=== PATIENT | male | born 1965 | race American Indian/Alaskan Native ===

== ENCOUNTER 2020-10-06 11:55 | Emergency (ER) | payer SELFPAY ==
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
[2020-10-06] MEDS ORDERED: hydrALAZINE 20 MG/1 ML INJ IV ONE (12:50)
[2020-10-06] MEDS ORDERED: ACETAMINOPHEN 500 MG TAB PO ONE (13:30)
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
--- NOTE | 2020-10-06 13:34 | XRay Report ---
CHEST 2 VIEWS INDICATION: ELEVATED BP. COMPARISON: None FINDINGS: Support devices: None. Heart: Within normal limits. Lungs/pleura: No acute air space or interstitial disease. No pneumothorax. Additional findings: None. IMPRESSION: No acute findings. Signer Name: Micah Watson Jr, MD Signed: 10/06/2020 1:29 PM Workstation Name: [id number]
[2020-10-06 14:00] LABS: Basophils % (Auto) 0.4 % (0.0-1.8); Eosinophils # (Auto) 0.1 K/mm3 (0.0-0.4); Eosinophils % (Auto) 1.2 % (0.0-4.3); Hemoglobin 14.3 gm/dl (11.8-15.2); Lymphocytes # (Auto) 2.6 K/mm3 (1.2-5.4); Lymphocytes % (Auto) 23.9 % (13.4-35.0); Mean Corpuscular HGB Conc 33 % (32-34); Mean Corpuscular Volume 85 fl (84-94); Monocytes # (Auto) 0.8 K/mm3 (0.0-0.8); Monocytes % (Auto) 7.2 % (0.0-7.3); Platelet Count 208 K/mm3 (140-440); Red Blood Count 5.05 M/mm3 (3.65-5.03); Red Cell Distribution Width 15.1 % (13.2-15.2)
[2020-10-06 14:24] LABS: Alanine Aminotransferase 32 units/L (7-56); Albumin 4.1 g/dL (3.9-5); BUN/Creatinine Ratio 13; Blood Urea Nitrogen 10 mg/dL (9-20); Calcium 8.8 mg/dL (8.4-10.2); Hemolysis Index 3
--- NOTE | 2020-10-06 14:28 | Cat Scan Report ---
CT BRAIN: 10/06/2020 INDICATION / CLINICAL INFORMATION: HEADACHE. COMPARISON: None available. FINDINGS: BRAIN/INTRACRANIAL STRUCTURES: Unenhanced CT images of the brain demonstrate no evidence of acute int racranial abnormality. Ventricles and sulci are normal in size and shape. There is no evidence of ischemic injury, hemorrhage, or mass. There are no abnormal extra-axial fluid collections. Atherosclerotic vascular calcifications are present in the distal internal carotid arteries and verte bral arteries. EXTRACRANIAL STRUCTURES: Unremarkable. IMPRESSION: No acute abnormality. Negative unenhanced CT of the brain. All CT scans at this location are performed using dose reduction to ALARA by means of automated expos ure control. Signer Name: Oneal Lundberg MD Signed: 10/06/2020 2:23 PM Workstation Name: [email or web address]
[2020-10-06 14:30] LABS: Bilirubin,Urine NEG (Negative); Blood,Urine NEG (Negative); Color,Urine Yellow (Yellow); Protein,Urine <15 mg/dL mg/dL (Negative); Urobilinogen,Urine < 2.0 mg/dL (<2.0)
[2020-10-06] MEDS ORDERED: hydroCHLOROthiazide 25 MG TAB PO ONE (14:39)
[2020-10-06 15:04] VITALS: BP 168/100
--- NOTE | 2020-10-07 12:26 | Electrocardiograph Report ---
[facility] Test Date: 2020-10-06 Test Time: 13:07:38 Pat Name: JOAQUIM CHRISTIANSON Department: Room: Gender: M Manager Professional Development: [id number] : [id number] Requested By: GUANAKITO SMITH Order Number: [id number] Reading MD: Alem Damon Measurements Intervals [place] Rate: 74 P: 65 IA: 158 QRS: 14 QRSD: 97 T: 32 QT: 415 QTc: 463 Interpretive Statements Sinus rhythm Biatrial enlargement Left ventricular hypertrophy No previous ECG available for comparison Electronically Signed On 10-07-2020 12:26:31 EDT by Alem Damon
== END 2020-10-06 15:16 | disposition home or self-care (01) ==
LOC: ED 11:55
DX: I10 Essential (primary) hypertension (principal); R51.9 Headache, unspecified; Z91.19 Patient's noncompliance with other medical treatment and regimen; Z90.49 Acquired absence of other specified parts of digestive tract; Z98.890 Other specified postprocedural states; Z79.899 Other long term (current) drug therapy
CPT/HCPCS: 36415; 70450; 71046; 80053; 81001; 83735; 84484; 85025; 93005; 96374; 99284; J0360

== ENCOUNTER 2021-11-28 08:51 | Emergency (ER) | payer SELFPAY | END 2021-11-28 09:00 | disposition left against medical advice (07) | LOC: ED 08:51 | DX: M79.604 Pain in right leg (principal); Z53.21 Procedure and treatment not carried out due to patient leaving prior to being seen by health care provider ==